=== PATIENT | female | born 1970 | race Hispanic/Latino ===

== ENCOUNTER 2018-03-22 14:44 | Emergency (ER) | payer MEDICARE ==
[~2018-03-22] VITALS: Ht 149.9 cm; Wt 79.8 kg
[~2018-03-22 14:44] MED LIST: AMLODIPINE BESY10 MG PO; BUPROBAN150 MG PO; CRESTOR10 MG PO; LEVEMIR100 UNIT/1 SQ; LISINOPRIL-HCT1 EAC7 PO; LISINOPRIL-HCT1 EACH PO; LISINOPRIL2.5 MG PO; METFORMIN HCL1000 M1 PO; METFORMIN HCL500 M3 PO; NOVOLOG 70100 UNITS/ SC; NOVOLOG100 UNIT/1 SQ; NOVOLOG100 UNITS1 SQ; PANTOPRAZOLE SO40 MG PO; SERTRALINE HCL100 MG PO; TIZANIDINE HCL4 M1 PO; TOPIRAGEN25 MG PO; Z.0.GLIPIZIDE10 MG PO; Z.0.METOPROLOL TAR10 PO; Z.0.TOPAMAX50 MG PO; [UNRECOGNIZED DRUG - OTHER] PO
[2018-03-22] MEDS ORDERED: LABETALOL HCL 5 MG/ML 20ML VIAL IV NR ×2 (15:30→18:20)
[2018-03-22] MEDS ORDERED: SODIUM CHLORIDE 0.9% 500ML 500 ML IV ONE (15:30)
[2018-03-22 15:39] LABS: BASOPHILS % 0.1 % (0.0-1.0); EOSINOPHILS # (AUTO) 0.1 (0.0-0.4); EOSINOPHILS % 1.3 % (0.0-6.0); HEMATOCRIT 26.6 % (34.2-44.1); HEMOGLOBIN 8.2 g/dL (12.0-16.0); LYMPHOCYTES # (AUTO) 1.1 (1.0-3.2); LYMPHOCYTES % 13.6 % (18.0-39.1); MEAN CORPUSCULAR HEMOGLOBIN 22.8 pg (28-32); MEAN CORPUSCULAR HGB CONC 30.8 g/dL (31-35); MEAN CORPUSCULAR VOLUME 74.1 fL (81-99); MONOCYTES # (AUTO) 0.7 (0.2-0.8); MONOCYTES % 8.5 % (4.4-11.3); NEUTROPHILS # (AUTO) 6.3 (2.1-6.9); NEUTROPHILS % 76.1 % (38.7-80.0); PLATELET COUNT 93 x10e3/uL (140-360); RED BLOOD COUNT 3.59 x10e6/uL (3.6-5.1); RED CELL DISTRIBUTION WIDTH 17.1 % (11.7-14.4)
[2018-03-22 15:46] LABS: CLARITY,URINE CLEAR (CLEAR); COLOR,URINE YELLOW (YELLOW); LEUKOCYTE ESTERASE ,URINE NEGATIVE (NEGATIVE); NITRITE,URINE NEGATIVE (NEGATIVE); PROTEIN,URINE DIPSTICK 2+ (NEGATIVE)
[2018-03-22 15:47] LABS: BILIRUBIN,URINE NEGATIVE (NEGATIVE); KETONES,URINE NEGATIVE (NEGATIVE); URINE UROBILINOGEN 1 mg/dL (0.2 - 1)
[2018-03-22 16:01] LABS: EPITHELIAL CELLS,URINE MODERATE /LPF
[2018-03-22 16:02] LABS: ALANINE AMINOTRANSFERASE 19 IU/L (0-55); ALBUMIN 3.7 g/dL (3.5-5.0); ALBUMIN/GLOBULIN RATIO 0.9 (0.8-2.0); ALKALINE PHOSPHATASE 143 IU/L (40-150); ANION GAP 11.8 mmol/L (8-16); BLOOD UREA NITROGEN 13 mg/dL (7-26); BUN/CREATININE RATIO 16 (6-25); CALCIUM 9.1 mg/dL (8.4-10.2); CARBON DIOXIDE 23 mmol/L (22-29); CHLORIDE 102 mmol/L (98-107); CREATINE KINASE 50 IU/L (29-168); CREATININE, SERUM 0.81 mg/dL (0.57-1.11); EST GLOMERULAR FILTRATION RATE > 60 ML/MIN (60-); GLUCOSE 125 mg/dL (74-118); HYALINE CASTS 0-1 (0-1); LIPASE 29 U/L (8-78); POTASSIUM 3.8 mmol/L (3.5-5.1); RBC,URINE 0-5 /HPF (0-5); SODIUM 133 mmol/L (136-145); TRANSITIONAL EPI CELLS,URINE FEW; WBC,URINE (MAN) 0-5 /HPF (0-5)
--- NOTE | 2018-03-22 16:14 | Diagnostic Imaging Report ---
PROCEDURE: Frontal and lateral views of the chest. COMPARISON: 06/03/2013 INDICATIONS: SHORTNESS OF BREATH, CHEST PAIN, ELEVATED BLOOD PRESSURE FINDINGS: Lines/tubes: Interval placement of a left chest wall biventricular pacemaker with leads in the expected positions. Lungs: The lungs are well inflated and clear. There is no evidence of pneumonia or pulmonary edema. Pleura: There is no pleural effusion or pneumothorax. Heart and mediastinum: Normal size heart. 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 Median sternotomy wires are intact. Bones: No acute bony abnormality. Cholecystectomy clips IMPRESSION: No evidence of edema or infection Dictated by: Pramod Luong M.D. on 03/22/2018 at 16:18 Electronically approved by: Pramod Luong M.D. on 03/22/2018 at 16:18
[2018-03-22] MEDS ORDERED: IBUPROFEN 400 MG TAB PO NR (18:45)
== END 2018-03-22 20:03 | disposition home or self-care (01) ==
LOC: ER 14:44
DX: I10 Essential (primary) hypertension (principal); D64.9 Anemia, unspecified; E11.9 Type 2 diabetes mellitus without complications; I50.9 Heart failure, unspecified; I48.91 Unspecified atrial fibrillation; Z95.0 Presence of cardiac pacemaker
CPT/HCPCS: 36415; 71046; 80053; 81001; 82550; 82553; 83605; 83690; 83880; 84484; 85025; 93005; 99284; J3490; J7040